=== PATIENT | female | born 1955 | race Caucasian/White ===

== ENCOUNTER 2017-07-17 18:23 | Inpatient (IN) | payer BC, OTHER ==
[~2017-07-17] VITALS: Ht 167.6 cm; Wt 67.6 kg
[~2017-07-17 18:23] MED LIST: ALPR1TAB2 PO; ASPI-630 PO; HYDR-2762 PO; SERT100T PO
[2017-07-17] MEDS ORDERED: NITROGLYCERIN SUBLINGUAL 0.4 MG BOTTLE OF 25. SL PRN (19:30)
[2017-07-17] MEDS ORDERED: fentaNYL PF VIAL 100 MCG/2 ML VIAL IV PRN (19:30)
[2017-07-17 19:33] LABS: BASO # 0.1 x10^3/uL (0.0-0.2); BASO % 1 % (0-3); EOS % 1 % (0-3); HEMATOCRIT 42.9 % (36.0-47.0); HEMOGLOBIN 14.6 g/dL (12.0-15.5); LYMPH # 1.5 x10^3/uL (1.0-4.8); LYMPH % 29 % (24-48); MEAN CORPUSCULAR HEMOGLOBIN 31 pg (25-35); MEAN CORPUSCULAR HGB CONC 34 g/dL (31-37); MEAN CORPUSCULAR VOLUME 92 fL (79-100); MONO % 5 % (0-9); NEUT % 64 % (31-73); PLATELET COUNT 196 x10^3/uL (140-400); RED BLOOD COUNT 4.69 x10^6/uL (3.50-5.40); RED CELL DISTRIBUTION WIDTH 13.7 % (11.5-14.5); WHITE BLOOD COUNT 5.3 x10^3/uL (4.0-11.0)
[2017-07-17 19:47] LABS: CREATININE 0.7 mg/dL (0.6-1.0); GFR 85.6; POTASSIUM 3.9 mmol/L (3.5-5.1)
[2017-07-17 19:48] LABS: BILIRUBIN,URINE NEGATIVE (NEG); GLUCOSE,URINE NEGATIVE (NEG); NITRITE,URINE NEGATIVE (NEG); PROTEIN,URINE NEGATIVE (NEG-TRACE)
[2017-07-17 19:53] LABS: BACTERIA,URINE 0 /HPF (0-FEW); SQUAMOUS EPITHELIAL CELL,UR MOD /LPF; WBC,URINE OCC /HPF (0-4)
[2017-07-17 19:53] LABS: ALBUMIN 4.2 g/dL (3.4-5.0); ALBUMIN/GLOBULIN RATIO 1.4 (1.0-1.7); MAGNESIUM 1.9 mg/dL (1.8-2.4); TOTAL BILIRUBIN 0.5 mg/dL (0.2-1.0); TOTAL PROTEIN 7.3 g/dL (6.4-8.2)
[2017-07-17] MEDS ORDERED: IV NORMAL SALINE 1000ML BAG 1,000 ML IV SCH (20:00)
[2017-07-17 20:02] LABS: CKMB MASS < 0.5 ng/mL (0.0-3.6); CREATINE KINASE 86 U/L (26-192)
--- NOTE | 2017-07-17 20:13 | PHYS DOC ---
Past Medical History Past Medical History: Anxiety, Fibromyalgia, Seizure, Other Additional Past Medical Histor: lupus, cyst/tumor on brain, DDD Past Surgical History: Cancer Surgery, Hysterectomy Alcohol Use: None Drug Use: Marijuana Adult General Chief Complaint Chief Complaint: CHEST PAIN HPI HPI Patient is a 61 year old female who presents with complaint of chest pain. Patient states that she woke up with chest pain this morning. Patient states that it has been coming and going over the course of the day, however became constant over the past 2-3 hours. Patient states that she took 2 full strength aspirin at onset of symptoms but states that this did not help. The patient denies any history of known heart problems and has not had any recent stress testing. 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 Patient states that the pain in her chest as dull currently as 3 out of 10. Patient states that it was worse earlier when she called the ambulance. The patient also notes a prior to their arrival she had a "pseudoseizure" and states that she is having diffuse generalized extremity soreness. 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 Patient does have associated shortness of breath with her chest pain but denies nausea or diaphoresis. Review of Systems Review of Systems Constitutional: Denies fever or chills [] Eyes: Denies change in visual acuity, redness, or eye pain [] HENT: Denies nasal congestion or sore throat [] Respiratory: Shortness of breath[] Cardiovascular: Chest pain[] GI: Denies abdominal pain, nausea, vomiting, bloody stools or diarrhea [] : Denies dysuria or hematuria [] Musculoskeletal: Denies back pain or joint pain [] Integument: Denies rash or skin lesions [] Neurologic: Denies headache, focal weakness or sensory changes [] Endocrine: Denies polyuria or polydipsia [] All other systems were reviewed and found to be within normal limits, except as documented in this note. Current Medications Current Medications Current Medications Medications (Trade) Dose Ordered Sig/Donnell Start Time Stop Time Status Last Admin Dose Admin Fentanyl Citrate (Fentanyl 2ml Vial) 50 mcg PRN Q15MIN PRN 07/17/17 19:30 07/18/17 19:29 Nitroglycerin (Nitrostat) 0.4 mg PRN Q5MIN PRN 07/17/17 19:30 07/18/17 19:29 Sodium Chloride 1,000 ml @ 125 mls/hr Q8H 07/17/17 20:00 07/18/17 03:59 07/17/17 20:03 125 MLS/HR Allergies Allergies Allergies Coded Allergies Type Severity Reaction Last Updated Verified Iodinated Contrast- Oral and IV Dye Allergy Unknown Rash 09/07/14 No metoclopramide Allergy Unknown Unknown 09/07/14 No codeine Adverse Reaction Intermediate Unknown 09/07/14 No Physical Exam Physical Exam Constitutional: Alert, afebrile, appears in moderate discomfort. [] HENT: Normocephalic, atraumatic, bilateral external ears normal, oropharynx moist, no oral exudates, nose normal. [] Eyes: PERRLA, EOMI, conjunctiva normal, no discharge. [] Neck: Normal range of motion, no tenderness, supple, no stridor. [] Cardiovascular:Heart rate regular rhythm, no murmur [] Lungs & Thorax: Bilateral breath sounds clear to auscultation [] Abdomen: Bowel sounds normal, soft, no tenderness, no masses, no pulsatile masses. [] Skin: Warm, dry, no erythema, no rash. [] Back: No tenderness, no CVA tenderness. [] Extremities: No tenderness, no cyanosis, no clubbing, ROM intact, no edema. [] Neurologic: Alert and oriented X 3, normal motor function, normal sensory function, no focal deficits noted. [] Current Patient Data Vital Signs Vital Signs Date Time Temp Pulse Resp B/P (MAP) Pulse Ox O2 Delivery O2 Flow Rate FiO2 07/17/17 18:25 98.2 84 22 157/82 (107) 95 Room Air 98.2 Lab Values Laboratory Tests Test 07/17/17 18:50 07/17/17 19:35 White Blood Count 5.3 x10^3/uL (4.0-11.0) Red Blood Count 4.69 x10^6/uL (3.50-5.40) Hemoglobin 14.6 g/dL (12.0-15.5) Hematocrit 42.9 % (36.0-47.0) Mean Corpuscular Volume 92 fL (79-100) Mean Corpuscular Hemoglobin 31 pg (25-35) Mean Corpuscular Hemoglobin Concent 34 g/dL (31-37) Red Cell Distribution Width 13.7 % (11.5-14.5) Platelet Count 196 x10^3/uL (140-400) Neutrophils (%) (Auto) 64 % (31-73) Lymphocytes (%) (Auto) 29 % (24-48) Monocytes (%) (Auto) 5 % (0-9) Eosinophils (%) (Auto) 1 % (0-3) Basophils (%) (Auto) 1 % (0-3) Neutrophils # (Auto) 3.4 x10^3uL (1.8-7.7) Lymphocytes # (Auto) 1.5 x10^3/uL (1.0-4.8) Monocytes # (Auto) 0.2 x10^3/uL (0.0-1.1) Eosinophils # (Auto) 0.1 x10^3/uL (0.0-0.7) Basophils # (Auto) 0.1 x10^3/uL (0.0-0.2) Sodium Level 141 mmol/L (136-145) Potassium Level 3.9 mmol/L (3.5-5.1) Chloride Level 103 mmol/L (98-107) Carbon Dioxide Level 29 mmol/L (21-32) Anion Gap 9 (6-14) Blood Urea Nitrogen 7 mg/dL (7-20) Creatinine 0.7 mg/dL (0.6-1.0) Estimated GFR (Cockcroft-Gault) 85.6 BUN/Creatinine Ratio 10 (6-20) Glucose Level 100 mg/dL (70-99) H Calcium Level 9.0 mg/dL (8.5-10.1) Magnesium Level 1.9 mg/dL (1.8-2.4) Total Bilirubin 0.5 mg/dL (0.2-1.0) Aspartate Amino Transferase (AST) 14 U/L (15-37) L Alanine Aminotransferase (ALT) 14 U/L (14-59) Alkaline Phosphatase 74 U/L (46-116) Creatine Kinase 86 U/L (26-192) Creatine Kinase MB (Mass) < 0.5 ng/mL (0.0-3.6) Creatine Kinase MB Relative Index % (0-4) Troponin I Quantitative < 0.017 ng/mL (0.000-0.055) DQ-Dmh-B-Type Natriuretic Peptide 62 pg/mL (0-124) Total Protein 7.3 g/dL (6.4-8.2) Albumin 4.2 g/dL (3.4-5.0) Albumin/Globulin Ratio 1.4 (1.0-1.7) Urine Collection Type Unknown Urine Color Yellow Urine Clarity Clear Urine pH 7.0 Urine Specific [place] 1.015 Urine Protein Negative mg/dL (NEG-TRACE) Urine Glucose (UA) Negative mg/dL (NEG) Urine Ketones (Stick) Negative mg/dL (NEG) Urine Blood Negative (NEG) Urine Nitrite Negative (NEG) Urine Bilirubin Negative (NEG) Urine Urobilinogen Dipstick 2.0 mg/dL (0.2 mg/dL) Urine Leukocyte Esterase Negative (NEG) Urine RBC 3-5 /HPF (0-2) Urine WBC Occ /HPF (0-4) Urine Squamous Epithelial Cells Mod /LPF Urine Bacteria 0 /HPF (0-FEW) Urine Mucus Slight /LPF Laboratory Tests 07/17/17 18:50 Laboratory Tests 07/17/17 18:50 EKG EKG Interpreted by me: Heart rate 78, sinus rhythm, leftward axis, no acute ST/T wave abnormality present[] Radiology/Procedures Radiology/Procedures One view AP chest x-ray interpreted by me: No infiltrates, no effusions, normal cardiac silhouette[] Course & Med Decision Making Course & Med Decision Making Pertinent Labs and Imaging studies reviewed. (See chart for details) The patient's heart score is 4. Patient treated with nitroglycerin and fentanyl in the emergency department. Patient states improvement in symptoms however she does have persistent chest pain at this time. Patient will be admitted to the hospital for rule out of myocardial infarction. I spoke with Dr. Pearson who accepted care patient in hospital. Dragon Disclaimer Dragon Disclaimer This electronic medical record was generated, in whole or in part, using a voice recognition dictation system. Departure Departure Impression: Primary Impression: Chest pain Disposition: ADMITTED INPATIENT Admitting Physician: Other Condition: STABLE Referrals: BASHIR VARELA MD (PCP) Problem Qualifiers Primary Impression: Chest pain Chest pain type: unspecified Qualified Codes: R07.9 - Chest pain, unspecified VENESSA MAGDALENO MD Jul 17, 2017 20:13
[2017-07-17] MEDS ORDERED: ONDANSETRON PF 4 MG/2 ML VIAL. IV PRN (20:15)
[2017-07-17] MEDS ORDERED: ACETAMINOPHEN 325 MG TABLET. PO PRN (20:15)
[2017-07-17] MEDS: fentaNYL PF VIAL 100 MCG/2 ML VIAL IV PRN (22:07)
[2017-07-17] MEDS ORDERED: OXTELLAR PO (22:27)
[2017-07-17 23:00] VITALS: BP 147/83
[2017-07-18] MEDS: fentaNYL PF VIAL 100 MCG/2 ML VIAL IV PRN (00:28)
[2017-07-18] MEDS ORDERED: ALPRAZolam 1 MG TABLET PO ONE (00:45)
[2017-07-18] MEDS ORDERED: SERTRALINE 50 MG TABLET. PO ONE (00:45)
[2017-07-18] MEDS ORDERED: HYDROcodone/APAP 7.5/325MG 1 TAB TABLET PO PRN ×2 (00:45→18:15)
--- NOTE | 2017-07-18 01:16 | HP ---
ADMIT DATE: 07/17/2017 CHIEF COMPLAINT: Arm pain, chest pain. HISTORY OF PRESENT ILLNESS: The patient is a 61-year-old woman with past medical history of anxiety, fibromyalgia, seizure disorder among others, who presented to the Emergency Room with a 3-day history of left arm pain. She relates that from her shoulder joint down to about mid forearm, she has had pain that is waxing and waning and actually has made it difficult for her to sleep on her left side. On further questioning, she also relates that she had chest pressure, which has been going on waxing and waning over the past 3 days, worse since awakening this morning. She took some aspirin, which actually did not help the pain. She also endorses some shortness of breath and nausea with all symptoms ongoing. She denies any diaphoresis with the episodes, but does have frequent sweats, especially at night and upon waking early in the morning. She denies any heart history. PAST MEDICAL HISTORY: Seizure disorder, cyst in the brain in third ventricle (?), fibromyalgia, lupus, breast surgery, status post mastectomy, status post hysterectomy. FAMILY HISTORY: No heart disease, hypertension or other diseases known to her. SOCIAL HISTORY: Lives with her . Smokes about a half a pack a day, down from 1 to 2 packs previously. Also smokes marijuana. Denies any alcohol use. ALLERGIES: IODINATED CONTRAST, CODEINE, METOCLOPRAMIDE. MEDICATIONS: MAR reconciled with home medications. REVIEW OF SYSTEMS: Positive as per HPI. She also has chronic back pain and fibromyalgia with trigger points. Has noted a skin rash on the medial aspect of her distal thigh just above the knee that seems to be coming and going over the months, itchy, nonpainful. Rest of organ system review is negative. PHYSICAL EXAMINATION: VITAL SIGNS: From today show a blood pressure of 127/77, heart rate of 70, respiratory rate at 22. She is afebrile. GENERAL: This is a well-nourished 61-year-old woman, alert and oriented, in no acute distress. HEENT: Shows no scleral icterus. NECK: Supple. LUNGS: Clear. HEART: Has regular rate and rhythm. ABDOMEN: Positive bowel sounds, soft, moderate tenderness to palpation in the epigastric area. EXTREMITIES: Show no edema. SKIN: Warm, soft and dry. She has a circular erythematous lesion, dry and rough on the medial aspect of her left thigh. LABORATORY DATA: CBC with a WBC of 5.3, hemoglobin 14.6, platelets of 196. BUN and creatinine 7 and 0.7, normal electrolytes, normal LFTs. Troponins negative x 2. Urine is negative. ASSESSMENT AND PLAN: The patient is a 61-year-old woman who presents with various symptoms, in aggregate possibly angina. She has ruled out by labs already. We will obtain cardiac consult. Further studies as per Cardiology. Lipid profile and TSH are already pending. Discussed smoking cessation with her. She is slowly weaning herself off, but has significant stressors in her family life currently. We will continue all her other home medications. LUCIA MCGINNIS MD DR: UR/nts JOB#: [id number] / [id number] SCOTTY
[2017-07-18 02:31] LABS: BASO # 0.1 x10^3/uL (0.0-0.2); BASO % 1 % (0-3); EOS % 4 % (0-3); HEMATOCRIT 38.9 % (36.0-47.0); HEMOGLOBIN 13.3 g/dL (12.0-15.5); LYMPH # 2.2 x10^3/uL (1.0-4.8); LYMPH % 43 % (24-48); MEAN CORPUSCULAR HEMOGLOBIN 31 pg (25-35); MEAN CORPUSCULAR HGB CONC 34 g/dL (31-37); MEAN CORPUSCULAR VOLUME 92 fL (79-100); MONO % 6 % (0-9); NEUT % 46 % (31-73); PLATELET COUNT 185 x10^3/uL (140-400); RED BLOOD COUNT 4.24 x10^6/uL (3.50-5.40); RED CELL DISTRIBUTION WIDTH 13.7 % (11.5-14.5); WHITE BLOOD COUNT 5.1 x10^3/uL (4.0-11.0)
[2017-07-18 02:41] LABS: CALCIUM 8.7 mg/dL (8.5-10.1); CREATININE 0.7 mg/dL (0.6-1.0); GFR 85.6; POTASSIUM 3.4 mmol/L (3.5-5.1)
[2017-07-18 03:00] VITALS: BP 125/71
[2017-07-18] MEDS ORDERED: IV NORMAL SALINE 1000ML BAG 1,000 ML IV SCH (04:00)
--- NOTE | 2017-07-18 06:59 | EKG ---
[facility] [address] [place] [address] Test Date: 2017-07-17 Test Time: 18:28:06 Pat Name: JAMARI GREEN Department: Room: Gender: F Team Physician: : [id number] Requested By: VENESSA MAGDALENO Order Number: [id number] Reading MD: Measurements Intervals [place] Rate: 78 P: 48 CT: 152 QRS: -23 QRSD: 78 T: 38 QT: 390 QTc: 448 Interpretive Statements SINUS RHYTHM LEFTWARD AXIS QRS(T) CONTOUR ABNORMALITY CONSIDER ANTEROLATERAL MYOCARDIAL DAMAGE POSSIBLY ABNORMAL ECG RI6.01 No previous ECG available for comparison
[2017-07-18 07:00] VITALS: BP 133/77
[2017-07-18 07:18] LABS: CHOLESTEROL/HDL RATIO 7.8
--- NOTE | 2017-07-18 07:47 | RAD ---
Portable chest, 07/17/2017: History: Left arm numbness The heart size and pulmonary vascularity are normal. Linear opacities project over the lung bases are probably artifacts. There are also minimal scattered parenchymal scars. No pulmonary consolidation is seen. There is no evidence of pleural fluid. There is a mild thoracic scoliosis. IMPRESSION: No acute cardiopulmonary abnormality is detected.
[2017-07-18] MEDS: NICOTINE 14MG PATCH. TD SCH (08:43)
[2017-07-18] MEDS: ALPRAZolam 1 MG TABLET PO SCH ×3 (08:43→20:30)
--- NOTE | 2017-07-18 10:37 | PDOC2 ---
ERI MEDLEY FRANCHISE BROKER 07/18/17 1037: CARDIAC CONSULT DATE OF CONSULT Date of Consult DATE: 07/18/17 TIME: 10:33 REASON FOR CONSULT Reason for Consult: Chest pain REFERRING PHYSICIAN Referring Physician: Dr. Gaitan SOURCE Source: Chart review, Patient HISTORY OF PRESENT ILLNESS HISTORY OF PRESENT ILLNESS This is a 61 yo female who presented with complaints of chest pain. Patient reports pain has been intermittent for the last year. No precipitating or exacerbating factors. Most recently, patient reports experiencing pain in her central chest throughout the day yesterday that progressively worsened. Describes as pressure in nature. Radiated to her left shoulder and down her left arm. Associated with mild SOA. Denies any dizziness, diaphoresis, palpitations, or nausea/vomiting. Does report having "pseudoseizure" yesterday that seemed to worsen the pain. Reports feeling overly fatigued for the last year. No recent cardiac workup. Was previously on statin, although she discontinued due to myalgias. Is somewhat of a difficult historian. PAST MEDICAL HISTORY Cardiovascular: Hyperlipidemia, Other (palpitations) Pulmonary: Asthma CENTRAL NERVOUS SYSTEM: Seizure GI: GERD Heme/Onc: No pertinent hx Hepatobiliary: No pertinent hx Psych: Anxiety, Depression, Other (PTSD) Musculoskeletal: low back pain (DDD) Rheumatologic: No pertinent hx Infectious disease: No pertinent hx ENT: No pertinent hx Renal/: Chronic renal insuff Endocrine: No pertinent hx Dermatology: No pertinent hx PAST SURGICAL HISTORY Past Surgical History: Hysterectomy, Other (nephrectomy ) FAMILY HISTORY Family History: Heart Disease, Hypertension SOCIAL HISTORY Smoke: 1 pack per day ALCOHOL: none Drugs: None, Other (clean for 15 years ) Lives: with Family CURRENT MEDICATIONS CURRENT MEDICATIONS Current Medications Medications (Trade) Dose Ordered Sig/Donnell Route PRN Reason Start Time Stop Time Status Last Admin Dose Admin Sodium Chloride 1,000 ml @ 125 mls/hr Q8H IV 07/17/17 20:00 07/18/17 03:59 DC 07/17/17 20:03 Fentanyl Citrate (Fentanyl 2ml Vial) 50 mcg PRN Q2HR PRN IV PAIN 07/17/17 20:15 07/18/17 20:14 07/18/17 00:28 Sodium Chloride 1,000 ml @ 125 mls/hr Q8H IV 07/18/17 04:00 07/18/17 04:01 DC 07/18/17 03:44 Acetaminophen (Tylenol) 650 mg PRN Q4HRS PRN PO FEVER 07/17/17 20:15 07/18/17 20:14 07/17/17 22:06 Alprazolam (Xanax) 1 mg TID PO 07/18/17 09:00 07/18/17 08:43 Acetaminophen/ Hydrocodone Bitart (Lortab 7.5/325) 1 tab for pain 5-7 2 tabs ... PRN Q4HRS PRN PO pain 07/18/17 00:45 07/18/17 03:43 Nicotine (Nicoderm Cq 14mg) 1 patch DAILY TD 07/18/17 09:00 07/18/17 08:43 Alprazolam (Xanax) 1 mg 1X ONCE PO 07/18/17 00:45 07/18/17 00:46 DC 07/18/17 00:50 Sertraline HCl (Zoloft) 150 mg 1X ONCE PO 07/18/17 00:45 07/18/17 00:46 DC 07/18/17 00:50 ALLERGIES ALLERGIES: Coded Allergies: Iodinated Contrast- Oral and IV Dye (Verified Allergy, Unknown, Rash, ) metoclopramide (Verified Allergy, Unknown, Unknown, 07/18/17) causes body to contort codeine (Verified Adverse Reaction, Intermediate, Unknown, 07/18/17) "migraine" ROS Review of System 14 point ROS conducted with pertinent positives noted above in HPI. PHYSICAL EXAM General: Alert, Oriented X3, Cooperative, No acute distress HEENT: Atraumatic, Mucous membr. moist/pink Lungs: Clear to auscultation Heart: Regular rate, Normal S1, Normal S2 Abdomen: Soft, No tenderness Extremities: No edema, Normal pulses Skin: No significant lesion Neuro: Normal speech, Sensation intact Psych/Mental Status: Mental status NL, Other (flat affect ) MUSCULOSKELETAL: Osteoarthritic changes both hands VITALS VITALS Vital Signs Date Time Temp Pulse Resp B/P (MAP) Pulse Ox O2 Delivery O2 Flow Rate FiO2 07/18/17 08:00 Room Air 07/18/17 07:00 97.8 60 18 133/77 (95) 96 97.8 LABS Lab: Laboratory Tests Test 07/17/17 18:50 07/17/17 19:35 07/17/17 22:30 07/18/17 02:20 White Blood Count 5.3 x10^3/uL (4.0-11.0) 5.1 x10^3/uL (4.0-11.0) Red Blood Count 4.69 x10^6/uL (3.50-5.40) 4.24 x10^6/uL (3.50-5.40) Hemoglobin 14.6 g/dL (12.0-15.5) 13.3 g/dL (12.0-15.5) Hematocrit 42.9 % (36.0-47.0) 38.9 % (36.0-47.0) Mean Corpuscular Volume 92 fL (79-100) 92 fL (79-100) Mean Corpuscular Hemoglobin 31 pg (25-35) 31 pg (25-35) Mean Corpuscular Hemoglobin Concent 34 g/dL (31-37) 34 g/dL (31-37) Red Cell Distribution Width 13.7 % (11.5-14.5) 13.7 % (11.5-14.5) Platelet Count 196 x10^3/uL (140-400) 185 x10^3/uL (140-400) Neutrophils (%) (Auto) 64 % (31-73) 46 % (31-73) Lymphocytes (%) (Auto) 29 % (24-48) 43 % (24-48) Monocytes (%) (Auto) 5 % (0-9) 6 % (0-9) Eosinophils (%) (Auto) 1 % (0-3) 4 % (0-3) Basophils (%) (Auto) 1 % (0-3) 1 % (0-3) Neutrophils # (Auto) 3.4 x10^3uL (1.8-7.7) 2.4 x10^3uL (1.8-7.7) Lymphocytes # (Auto) 1.5 x10^3/uL (1.0-4.8) 2.2 x10^3/uL (1.0-4.8) Monocytes # (Auto) 0.2 x10^3/uL (0.0-1.1) 0.3 x10^3/uL (0.0-1.1) Eosinophils # (Auto) 0.1 x10^3/uL (0.0-0.7) 0.2 x10^3/uL (0.0-0.7) Basophils # (Auto) 0.1 x10^3/uL (0.0-0.2) 0.1 x10^3/uL (0.0-0.2) Sodium Level 141 mmol/L (136-145) 142 mmol/L (136-145) Potassium Level 3.9 mmol/L (3.5-5.1) 3.4 mmol/L (3.5-5.1) Chloride Level 103 mmol/L (98-107) 109 mmol/L (98-107) Carbon Dioxide Level 29 mmol/L (21-32) 27 mmol/L (21-32) Anion Gap 9 (6-14) 6 (6-14) Blood Urea Nitrogen 7 mg/dL (7-20) 13 mg/dL (7-20) Creatinine 0.7 mg/dL (0.6-1.0) 0.7 mg/dL (0.6-1.0) Estimated GFR (Cockcroft-Gault) 85.6 85.6 BUN/Creatinine Ratio 10 (6-20) Glucose Level 100 mg/dL (70-99) 108 mg/dL (70-99) Calcium Level 9.0 mg/dL (8.5-10.1) 8.7 mg/dL (8.5-10.1) Magnesium Level 1.9 mg/dL (1.8-2.4) Total Bilirubin 0.5 mg/dL (0.2-1.0) Aspartate Amino Transf (AST/SGOT) 14 U/L (15-37) Alanine Aminotransferase (ALT/SGPT) 14 U/L (14-59) Alkaline Phosphatase 74 U/L (46-116) Creatine Kinase 86 U/L (26-192) Creatine Kinase MB (Mass) < 0.5 ng/mL (0.0-3.6) Creatine Kinase MB Relative Index % (0-4) Troponin I Quantitative < 0.017 ng/mL (0.000-0.055) < 0.017 ng/mL (0.000-0.055) < 0.017 ng/mL (0.000-0.055) DU-Jax-Z-Type Natriuretic Peptide 62 pg/mL (0-124) Total Protein 7.3 g/dL (6.4-8.2) Albumin 4.2 g/dL (3.4-5.0) Albumin/Globulin Ratio 1.4 (1.0-1.7) Urine Collection Type Unknown Urine Color Yellow Urine Clarity Clear Urine pH 7.0 Urine Specific [place] 1.015 Urine Protein Negative mg/dL (NEG-TRACE) Urine Glucose (UA) Negative mg/dL (NEG) Urine Ketones (Stick) Negative mg/dL (NEG) Urine Blood Negative (NEG) Urine Nitrite Negative (NEG) Urine Bilirubin Negative (NEG) Urine Urobilinogen Dipstick 2.0 mg/dL (0.2 mg/dL) Urine Leukocyte Esterase Negative (NEG) Urine RBC 3-5 /HPF (0-2) Urine WBC Occ /HPF (0-4) Urine Squamous Epithelial Cells Mod /LPF Urine Bacteria 0 /HPF (0-FEW) Urine Mucus Slight /LPF Triglycerides Level 91 mg/dL (0-150) Cholesterol Level 210 mg/dL (0-200) LDL Cholesterol, Calculated 165 mg/dL (0-100) VLDL Cholesterol, Calculated 18 mg/dL (0-40) Non-HDL Cholesterol Calculated 183 mg/dL (0-129) HDL Cholesterol 27 mg/dL (40-60) Cholesterol/HDL Ratio 7.8 Thyroid Stimulating Hormone (TSH) 1.605 uIU/mL (0.358-3.74) ASSESSMENT/PLAN ASSESSMENT/PLAN 1. Chest pain, atypical. AMI ruled out 2. Hyperlipidemia 3. Seizure disorder 4. GERD 5. Chronic pain 6. Fatigue 7. Tobaccoism; discussed/encouraged cessation Recommendations Given risk factors, will proceed with stress test to r/o ischemia Trial Crestor upon discharge as she has been intolerant to statins previously Problems: CHAUNCEY SYKES MD 07/18/17 1710: CARDIAC CONSULT ALLERGIES ALLERGIES: Coded Allergies: Iodinated Contrast- Oral and IV Dye (Verified Allergy, Unknown, Rash, ) metoclopramide (Verified Allergy, Unknown, Unknown, 07/18/17) causes body to contort codeine (Verified Adverse Reaction, Intermediate, Unknown, 07/18/17) "migraine" ASSESSMENT/PLAN ASSESSMENT/PLAN Patient seen and examined. Agree with above nurse practitioner note. Myocardial perfusion study unremarkable. Please call with further questions. Thank you for this consultation. Problems: ERI MEDLEY APRN Jul 18, 2017 10:37 CHAUNCEY SYKES MD Jul 18, 2017 17:10
[2017-07-18 11:00] VITALS: BP 114/76
[2017-07-18] MEDS ORDERED: REGADENOSON 0.4 MG/5 ML DISP.SYRIN. IV ONE (12:00)
[2017-07-18] MEDS ORDERED: POTASSIUM CL 20MEQ D5-0.45NACL 1,000 ML IV ONE (12:30)
--- NOTE | 2017-07-18 12:32 | PDOC ---
PROGRESS NOTES Chief Complaint Chief Complaint angina. pseudoseizure, anxiety disorder substance abuse prior seizure htn hyperlipids PTSD History of Present Illness History of Present Illness stress test today seizure in wheelchair while waiting, pseudoseizure fits better, she was able to talk during the event, but had tonic-clinic movements rhythmic and rapids movements of arms and legs, Vitals Vitals Vital Signs Date Time Temp Pulse Resp B/P (MAP) Pulse Ox O2 Delivery O2 Flow Rate FiO2 07/18/17 11:00 97.8 61 18 114/76 (89) 95 Room Air 97.8 Physical Exam General: Alert, Cooperative, No acute distress Heart: Normal S1 Abdomen: Normal bowel sounds Extremities: No cyanosis Skin: No rashes Labs LABS Laboratory Tests Test 07/17/17 18:50 07/17/17 19:35 07/17/17 22:30 07/18/17 02:20 White Blood Count 5.3 x10^3/uL (4.0-11.0) 5.1 x10^3/uL (4.0-11.0) Red Blood Count 4.69 x10^6/uL (3.50-5.40) 4.24 x10^6/uL (3.50-5.40) Hemoglobin 14.6 g/dL (12.0-15.5) 13.3 g/dL (12.0-15.5) Hematocrit 42.9 % (36.0-47.0) 38.9 % (36.0-47.0) Mean Corpuscular Volume 92 fL (79-100) 92 fL (79-100) Mean Corpuscular Hemoglobin 31 pg (25-35) 31 pg (25-35) Mean Corpuscular Hemoglobin Concent 34 g/dL (31-37) 34 g/dL (31-37) Red Cell Distribution Width 13.7 % (11.5-14.5) 13.7 % (11.5-14.5) Platelet Count 196 x10^3/uL (140-400) 185 x10^3/uL (140-400) Neutrophils (%) (Auto) 64 % (31-73) 46 % (31-73) Lymphocytes (%) (Auto) 29 % (24-48) 43 % (24-48) Monocytes (%) (Auto) 5 % (0-9) 6 % (0-9) Eosinophils (%) (Auto) 1 % (0-3) 4 % (0-3) Basophils (%) (Auto) 1 % (0-3) 1 % (0-3) Neutrophils # (Auto) 3.4 x10^3uL (1.8-7.7) 2.4 x10^3uL (1.8-7.7) Lymphocytes # (Auto) 1.5 x10^3/uL (1.0-4.8) 2.2 x10^3/uL (1.0-4.8) Monocytes # (Auto) 0.2 x10^3/uL (0.0-1.1) 0.3 x10^3/uL (0.0-1.1) Eosinophils # (Auto) 0.1 x10^3/uL (0.0-0.7) 0.2 x10^3/uL (0.0-0.7) Basophils # (Auto) 0.1 x10^3/uL (0.0-0.2) 0.1 x10^3/uL (0.0-0.2) Sodium Level 141 mmol/L (136-145) 142 mmol/L (136-145) Potassium Level 3.9 mmol/L (3.5-5.1) 3.4 mmol/L (3.5-5.1) Chloride Level 103 mmol/L (98-107) 109 mmol/L (98-107) Carbon Dioxide Level 29 mmol/L (21-32) 27 mmol/L (21-32) Anion Gap 9 (6-14) 6 (6-14) Blood Urea Nitrogen 7 mg/dL (7-20) 13 mg/dL (7-20) Creatinine 0.7 mg/dL (0.6-1.0) 0.7 mg/dL (0.6-1.0) Estimated GFR (Cockcroft-Gault) 85.6 85.6 BUN/Creatinine Ratio 10 (6-20) Glucose Level 100 mg/dL (70-99) 108 mg/dL (70-99) Calcium Level 9.0 mg/dL (8.5-10.1) 8.7 mg/dL (8.5-10.1) Magnesium Level 1.9 mg/dL (1.8-2.4) Total Bilirubin 0.5 mg/dL (0.2-1.0) Aspartate Amino Transf (AST/SGOT) 14 U/L (15-37) Alanine Aminotransferase (ALT/SGPT) 14 U/L (14-59) Alkaline Phosphatase 74 U/L (46-116) Creatine Kinase 86 U/L (26-192) Creatine Kinase MB (Mass) < 0.5 ng/mL (0.0-3.6) Creatine Kinase MB Relative Index % (0-4) Troponin I Quantitative < 0.017 ng/mL (0.000-0.055) < 0.017 ng/mL (0.000-0.055) < 0.017 ng/mL (0.000-0.055) VM-Vwo-Q-Type Natriuretic Peptide 62 pg/mL (0-124) Total Protein 7.3 g/dL (6.4-8.2) Albumin 4.2 g/dL (3.4-5.0) Albumin/Globulin Ratio 1.4 (1.0-1.7) Urine Collection Type Unknown Urine Color Yellow Urine Clarity Clear Urine pH 7.0 Urine Specific [place]we 1.015 Urine Protein Negative mg/dL (NEG-TRACE) Urine Glucose (UA) Negative mg/dL (NEG) Urine Ketones (Stick) Negative mg/dL (NEG) Urine Blood Negative (NEG) Urine Nitrite Negative (NEG) Urine Bilirubin Negative (NEG) Urine Urobilinogen Dipstick 2.0 mg/dL (0.2 mg/dL) Urine Leukocyte Esterase Negative (NEG) Urine RBC 3-5 /HPF (0-2) Urine WBC Occ /HPF (0-4) Urine Squamous Epithelial Cells Mod /LPF Urine Bacteria 0 /HPF (0-FEW) Urine Mucus Slight /LPF Triglycerides Level 91 mg/dL (0-150) Cholesterol Level 210 mg/dL (0-200) LDL Cholesterol, Calculated 165 mg/dL (0-100) VLDL Cholesterol, Calculated 18 mg/dL (0-40) Non-HDL Cholesterol Calculated 183 mg/dL (0-129) HDL Cholesterol 27 mg/dL (40-60) Cholesterol/HDL Ratio 7.8 Thyroid Stimulating Hormone (TSH) 1.605 uIU/mL (0.358-3.74) Review of Systems Review of Systems non.vd. chest pain was improved stress and seizure Assessment and Plan Assessmemt and Plan Problems Medical Problems: (1) Chest pain Status: Acute Problems: Comment Review of Relevant I have reviewed the following items claribel (where applicable) has been applied. Labs Laboratory Tests Test 07/17/17 18:50 07/17/17 19:35 07/17/17 22:30 07/18/17 02:20 White Blood Count 5.3 x10^3/uL (4.0-11.0) 5.1 x10^3/uL (4.0-11.0) Red Blood Count 4.69 x10^6/uL (3.50-5.40) 4.24 x10^6/uL (3.50-5.40) Hemoglobin 14.6 g/dL (12.0-15.5) 13.3 g/dL (12.0-15.5) Hematocrit 42.9 % (36.0-47.0) 38.9 % (36.0-47.0) Mean Corpuscular Volume 92 fL (79-100) 92 fL (79-100) Mean Corpuscular Hemoglobin 31 pg (25-35) 31 pg (25-35) Mean Corpuscular Hemoglobin Concent 34 g/dL (31-37) 34 g/dL (31-37) Red Cell Distribution Width 13.7 % (11.5-14.5) 13.7 % (11.5-14.5) Platelet Count 196 x10^3/uL (140-400) 185 x10^3/uL (140-400) Neutrophils (%) (Auto) 64 % (31-73) 46 % (31-73) Lymphocytes (%) (Auto) 29 % (24-48) 43 % (24-48) Monocytes (%) (Auto) 5 % (0-9) 6 % (0-9) Eosinophils (%) (Auto) 1 % (0-3) 4 % (0-3) Basophils (%) (Auto) 1 % (0-3) 1 % (0-3) Neutrophils # (Auto) 3.4 x10^3uL (1.8-7.7) 2.4 x10^3uL (1.8-7.7) Lymphocytes # (Auto) 1.5 x10^3/uL (1.0-4.8) 2.2 x10^3/uL (1.0-4.8) Monocytes # (Auto) 0.2 x10^3/uL (0.0-1.1) 0.3 x10^3/uL (0.0-1.1) Eosinophils # (Auto) 0.1 x10^3/uL (0.0-0.7) 0.2 x10^3/uL (0.0-0.7) Basophils # (Auto) 0.1 x10^3/uL (0.0-0.2) 0.1 x10^3/uL (0.0-0.2) Sodium Level 141 mmol/L (136-145) 142 mmol/L (136-145) Potassium Level 3.9 mmol/L (3.5-5.1) 3.4 mmol/L (3.5-5.1) Chloride Level 103 mmol/L (98-107) 109 mmol/L (98-107) Carbon Dioxide Level 29 mmol/L (21-32) 27 mmol/L (21-32) Anion Gap 9 (6-14) 6 (6-14) Blood Urea Nitrogen 7 mg/dL (7-20) 13 mg/dL (7-20) Creatinine 0.7 mg/dL (0.6-1.0) 0.7 mg/dL (0.6-1.0) Estimated GFR (Cockcroft-Gault) 85.6 85.6 BUN/Creatinine Ratio 10 (6-20) Glucose Level 100 mg/dL (70-99) 108 mg/dL (70-99) Calcium Level 9.0 mg/dL (8.5-10.1) 8.7 mg/dL (8.5-10.1) Magnesium Level 1.9 mg/dL (1.8-2.4) Total Bilirubin 0.5 mg/dL (0.2-1.0) Aspartate Amino Transf (AST/SGOT) 14 U/L (15-37) Alanine Aminotransferase (ALT/SGPT) 14 U/L (14-59) Alkaline Phosphatase 74 U/L (46-116) Creatine Kinase 86 U/L (26-192) Creatine Kinase MB (Mass) < 0.5 ng/mL (0.0-3.6) Creatine Kinase MB Relative Index % (0-4) Troponin I Quantitative < 0.017 ng/mL (0.000-0.055) < 0.017 ng/mL (0.000-0.055) < 0.017 ng/mL (0.000-0.055) RQ-Nvo-K-Type Natriuretic Peptide 62 pg/mL (0-124) Total Protein 7.3 g/dL (6.4-8.2) Albumin 4.2 g/dL (3.4-5.0) Albumin/Globulin Ratio 1.4 (1.0-1.7) Urine Collection Type Unknown Urine Color Yellow Urine Clarity Clear Urine pH 7.0 Urine Specific [place]we 1.015 Urine Protein Negative mg/dL (NEG-TRACE) Urine Glucose (UA) Negative mg/dL (NEG) Urine Ketones (Stick) Negative mg/dL (NEG) Urine Blood Negative (NEG) Urine Nitrite Negative (NEG) Urine Bilirubin Negative (NEG) Urine Urobilinogen Dipstick 2.0 mg/dL (0.2 mg/dL) Urine Leukocyte Esterase Negative (NEG) Urine RBC 3-5 /HPF (0-2) Urine WBC Occ /HPF (0-4) Urine Squamous Epithelial Cells Mod /LPF Urine Bacteria 0 /HPF (0-FEW) Urine Mucus Slight /LPF Triglycerides Level 91 mg/dL (0-150) Cholesterol Level 210 mg/dL (0-200) LDL Cholesterol, Calculated 165 mg/dL (0-100) VLDL Cholesterol, Calculated 18 mg/dL (0-40) Non-HDL Cholesterol Calculated 183 mg/dL (0-129) HDL Cholesterol 27 mg/dL (40-60) Cholesterol/HDL Ratio 7.8 Thyroid Stimulating Hormone (TSH) 1.605 uIU/mL (0.358-3.74) Laboratory Tests Test 07/17/17 18:50 07/17/17 19:35 07/17/17 22:30 07/18/17 02:20 White Blood Count 5.3 x10^3/uL (4.0-11.0) 5.1 x10^3/uL (4.0-11.0) Red Blood Count 4.69 x10^6/uL (3.50-5.40) 4.24 x10^6/uL (3.50-5.40) Hemoglobin 14.6 g/dL (12.0-15.5) 13.3 g/dL (12.0-15.5) Hematocrit 42.9 % (36.0-47.0) 38.9 % (36.0-47.0) Mean Corpuscular Volume 92 fL (79-100) 92 fL (79-100) Mean Corpuscular Hemoglobin 31 pg (25-35) 31 pg (25-35) Mean Corpuscular Hemoglobin Concent 34 g/dL (31-37) 34 g/dL (31-37) Red Cell Distribution Width 13.7 % (11.5-14.5) 13.7 % (11.5-14.5) Platelet Count 196 x10^3/uL (140-400) 185 x10^3/uL (140-400) Neutrophils (%) (Auto) 64 % (31-73) 46 % (31-73) Lymphocytes (%) (Auto) 29 % (24-48) 43 % (24-48) Monocytes (%) (Auto) 5 % (0-9) 6 % (0-9) Eosinophils (%) (Auto) 1 % (0-3) 4 % (0-3) Basophils (%) (Auto) 1 % (0-3) 1 % (0-3) Neutrophils # (Auto) 3.4 x10^3uL (1.8-7.7) 2.4 x10^3uL (1.8-7.7) Lymphocytes # (Auto) 1.5 x10^3/uL (1.0-4.8) 2.2 x10^3/uL (1.0-4.8) Monocytes # (Auto) 0.2 x10^3/uL (0.0-1.1) 0.3 x10^3/uL (0.0-1.1) Eosinophils # (Auto) 0.1 x10^3/uL (0.0-0.7) 0.2 x10^3/uL (0.0-0.7) Basophils # (Auto) 0.1 x10^3/uL (0.0-0.2) 0.1 x10^3/uL (0.0-0.2) Sodium Level 141 mmol/L (136-145) 142 mmol/L (136-145) Potassium Level 3.9 mmol/L (3.5-5.1) 3.4 mmol/L (3.5-5.1) Chloride Level 103 mmol/L (98-107) 109 mmol/L (98-107) Carbon Dioxide Level 29 mmol/L (21-32) 27 mmol/L (21-32) Anion Gap 9 (6-14) 6 (6-14) Blood Urea Nitrogen 7 mg/dL (7-20) 13 mg/dL (7-20) Creatinine 0.7 mg/dL (0.6-1.0) 0.7 mg/dL (0.6-1.0) Estimated GFR (Cockcroft-Gault) 85.6 85.6 BUN/Creatinine Ratio 10 (6-20) Glucose Level 100 mg/dL (70-99) 108 mg/dL (70-99) Calcium Level 9.0 mg/dL (8.5-10.1) 8.7 mg/dL (8.5-10.1) Magnesium Level 1.9 mg/dL (1.8-2.4) Total Bilirubin 0.5 mg/dL (0.2-1.0) Aspartate Amino Transf (AST/SGOT) 14 U/L (15-37) Alanine Aminotransferase (ALT/SGPT) 14 U/L (14-59) Alkaline Phosphatase 74 U/L (46-116) Creatine Kinase 86 U/L (26-192) Creatine Kinase MB (Mass) < 0.5 ng/mL (0.0-3.6) Creatine Kinase MB Relative Index % (0-4) Troponin I Quantitative < 0.017 ng/mL (0.000-0.055) < 0.017 ng/mL (0.000-0.055) < 0.017 ng/mL (0.000-0.055) RM-Abl-G-Type Natriuretic Peptide 62 pg/mL (0-124) Total Protein 7.3 g/dL (6.4-8.2) Albumin 4.2 g/dL (3.4-5.0) Albumin/Globulin Ratio 1.4 (1.0-1.7) Urine Collection Type Unknown Urine Color Yellow Urine Clarity Clear Urine pH 7.0 Urine Specific [place]we 1.015 Urine Protein Negative mg/dL (NEG-TRACE) Urine Glucose (UA) Negative mg/dL (NEG) Urine Ketones (Stick) Negative mg/dL (NEG) Urine Blood Negative (NEG) Urine Nitrite Negative (NEG) Urine Bilirubin Negative (NEG) Urine Urobilinogen Dipstick 2.0 mg/dL (0.2 mg/dL) Urine Leukocyte Esterase Negative (NEG) Urine RBC 3-5 /HPF (0-2) Urine WBC Occ /HPF (0-4) Urine Squamous Epithelial Cells Mod /LPF Urine Bacteria 0 /HPF (0-FEW) Urine Mucus Slight /LPF Triglycerides Level 91 mg/dL (0-150) Cholesterol Level 210 mg/dL (0-200) LDL Cholesterol, Calculated 165 mg/dL (0-100) VLDL Cholesterol, Calculated 18 mg/dL (0-40) Non-HDL Cholesterol Calculated 183 mg/dL (0-129) HDL Cholesterol 27 mg/dL (40-60) Cholesterol/HDL Ratio 7.8 Thyroid Stimulating Hormone (TSH) 1.605 uIU/mL (0.358-3.74) Medications Current Medications Nitroglycerin (Nitrostat) 0.4 mg PRN Q5MIN PRN SL CP RATING > 1/10; Start at 19:30; Stop 07/18/17 at 19:29 Fentanyl Citrate (Fentanyl 2ml Vial) 50 mcg PRN Q15MIN PRN IV PAIN GREATER THAN 3/10; Start 07/17/17 at 19:30; Stop 07/17/17 at 23:00; Status DC Sodium Chloride 1,000 ml @ 125 mls/hr Q8H IV Last administered on 07/17/17 20:03; Start 07/17/17 at 20:00; Stop 07/18/17 at 03:59; Status DC Ondansetron HCl (Zofran) 4 mg PRN Q8HRS PRN IV NAUSEA/VOMITING; Start at 20:15; Stop 07/18/17 at 20:14 Fentanyl Citrate (Fentanyl 2ml Vial) 50 mcg PRN Q2HR PRN IV PAIN Last administered on 07/18/17 00:28; Start 07/17/17 at 20:15; Stop 07/18/17 at 20 :14 Sodium Chloride 1,000 ml @ 125 mls/hr Q8H IV Last administered on 07/18/17 03:44; Start 07/18/17 at 04:00; Stop 07/18/17 at 04:01; Status DC Acetaminophen (Tylenol) 650 mg PRN Q4HRS PRN PO FEVER Last administered on 22:06; Start 07/17/17 at 20:15; Stop 07/18/17 at 20:14 Alprazolam (Xanax) 1 mg TID PO Last administered on 07/18/17 08:43; Start at 09:00 Aspirin (Children'S Aspirin) 81 mg HS PO ; Start 07/18/17 at 21:00 Acetaminophen/ Hydrocodone Bitart (Lortab 7.5/325) 1 tab for pain 5-7 2 tabs ... PRN Q4HRS PRN PO pain Last administered on 07/18/17 03:43; Start at 00:45 Sertraline HCl (Zoloft) 150 mg HS PO ; Start 07/18/17 at 21:00 Nicotine (Nicoderm Cq 14mg) 1 patch DAILY TD Last administered on 07/18/17 08 :43; Start 07/18/17 at 09:00 Alprazolam (Xanax) 1 mg 1X ONCE PO Last administered on 07/18/17 00:50; Start 07/18/17 at 00:45; Stop 07/18/17 at 00:46; Status DC Sertraline HCl (Zoloft) 150 mg 1X ONCE PO Last administered on 07/18/17 00: 50; Start 07/18/17 at 00:45; Stop 07/18/17 at 00:46; Status DC Regadenoson (Lexiscan) 0.4 mg 1X ONCE IV ; Start 07/18/17 at 12:00; Stop at 12:01; Status DC Non-Formulary Medication 100 mg HS PO ; Start 07/18/17 at 21:00; Status UNV Oxcarbazepine (Trileptal) 100 mg HS PO ; Start 07/18/17 at 21:00; Status UNV Lorazepam (Ativan) 4 mg 1X ONCE IV ; Start 07/18/17 at 12:30; Stop 07/18/17 at 12:31; Status UNV Active Scripts Active Reported [Oxtellar] 100 Mg PO HS Hydrocodone-Apap 7.5-325 (Hydrocodone Bit/Acetaminophen) 1 Each Tablet 1-2 Tab PO Q4-6HRS Zoloft (Sertraline Hcl) 100 Mg Tablet 1.5 Tab PO HS Xanax (Alprazolam) 1 Mg Tablet 1 Tab PO TID Aspirin 81 Mg Tab.chew 1 Tab PO HS Vitals/I & O Vital Sign - Last 24 Hours 07/17/17 07/17/17 07/17/17 07/17/17 18:25 19:01 19:31 20:01 Temp 98.2 98.2 Pulse 84 80 71 69 Resp 22 22 19 B/P (MAP) 157/82 (107) 148/82 (104) 131/81 (98) 139/80 (99) Pulse Ox 95 96 96 97 O2 Delivery Room Air Room Air Room Air Room Air 07/17/17 07/17/17 07/17/17 07/17/17 20:31 21:01 22:07 23:00 Temp 98.1 98.1 Pulse 70 72 62 Resp 22 14 18 16 B/P (MAP) 127/77 (94) 145/91 (109) 147/83 (104) Pulse Ox 96 96 97 O2 Delivery Room Air Room Air Room Air Room Air 07/18/17 07/18/17 07/18/17 07/18/17 00:28 00:52 03:00 03:43 Temp 98.2 98.2 Pulse 68 Resp 18 18 19 18 B/P (MAP) 125/71 (89) Pulse Ox 98 O2 Delivery Room Air Room Air Room Air Room Air 07/18/17 07/18/17 07/18/17 07:00 08:00 11:00 Temp 97.8 97.8 97.8 97.8 Pulse 60 61 Resp 18 18 B/P (MAP) 133/77 (95) 114/76 (89) Pulse Ox 96 95 O2 Delivery Room Air Room Air Room Air Intake and Output 07/17/17 07/17/17 07/18/17 15:00 23:00 07:00 Intake Total 150 ml Balance 150 ml COLLETTE GARZA MD Jul 18, 2017 12:32
[2017-07-18 15:55] VITALS: BP 135/71
--- NOTE | 2017-07-18 16:01 | RAD ---
APPROVED REPORT Test Type: Pharmacological Stress Nurse/Tech: Blanca Sibley R.N. Test Indications: chest pain Cardiac History: carotid artery blockage, asthma, smoker Medications: see ehr Medical History: see ehr Resting ECG: SR Resting Heart Rate: 63 bpm Resting Blood Pressure: 146/79mmHg Pretest Chest Pain: No chest pain Nurse/Tech Notes lungs cta, heart tones regular Consent: The procedure was explained to the patient in lay terms. Informed consent was witnessed. Ahmet eout was entered into [employer]. History and Stress Test performed by Desire Mohr, OSCAR, ARRT (R) (N) Pharm. Details Pharmacologic stress testing was performed using 0.4mg per 5ml of regadenoson given intravenously ove r 7-10 seconds. Stress Symptoms pt c/o chest heaviness throughout recovery POST EXERCISE Reason for Termination: Infusion complete Target HR: No Max HR: 95 bpm Max Blood Pressure: 156/77mmHg Chest Pain: Yes. see above Arrhythmia: No. ST Change: No. INTERPRETATION Stress EKG Conclusion: No evidence of stress induced EKG changes. Imaging Protocol IMAGE PROTOCOL: Rest Tc-99m/stress Tc-99m 1 day Rest: Stress: Viability: Radiopharm.Tc99m [id number] Sestamibi Dose9.1mCi 33mCi Duration 15min. 10min. Img Date 07/18/2017 07/18/2017 Inj-Img [id number]. 60min. STRESS DATA End Diast. Vol.71.0mlAv. Heart Rate61.0bpm End Syst. Vol.9.0mlCO Index BSA3.7L/min Myocardial Qdla232.0gEject. Oulpamyc30.0% Stress Rates Pk. Fill Rate2.78EDV/secLVtime Pk. Fill 115.89msec Pk. Empty Rate3.08ESV/secLVtime Pk. Lpiuz479.48msec 08/21 Pk. Fill1.99EDV/sec Stress Scores Regional WT0.00Summed WT0.00 Regional WM0.00Summed WM0.00 The rest and stress images show normal perfusion, normal contraction and thickening. LV Perf. Quant 17 Seg. SSS0.00 17 Seg. SRS0.00 17 Seg. SDS0.00 Stress Defect Extent (% LAD)0.00Rest Defect Extent (% LAD)0.00Rev. Defect Extent (% LAD)0.00 Stress Defect Extent (% LCX) 0.00Rest Defect Extent (% LCX)0.00Rev. Defect Extent (% LCX)0.00 Stress Defect Extent (% RCA)0.00Rest Defect Extent (% RCA)0.00Rev. Defect Extent (% RCA)0.00 Stress Defect Extent (% ANN)0.00Rest Defect Extent (% ANN)0.00Rev. Defect Extent (% ANN)0.00 Other Information Quality:Good Risk Assessment: Low Risk Conclusion 1. No evidence of EKG changes with stress testing. 2. Normal perfusion at stress/rest. 3. Low risk study. 4. EF > 60%.
[2017-07-18 19:00] VITALS: BP 119/74
[2017-07-18] MEDS: OXcarbazepine 300 MG TABLET PO SCH (20:30)
[2017-07-18] MEDS: HYDROcodone/APAP 7.5/325MG 1 TAB TABLET PO PRN (20:35)
[2017-07-18] MEDS ORDERED: OXcarbazepine 300 MG TABLET PO SCH (21:00)
[2017-07-18] MEDS ORDERED: SERTRALINE 50 MG TABLET. PO SCH (21:00)
[2017-07-18] MEDS ORDERED: OXTELLAR PO SCH (21:00)
[2017-07-18] MEDS ORDERED: ASPIRIN CHEWABLE 81 MG TABLET. PO SCH (21:00)
[2017-07-18 23:00] VITALS: BP 116/76
[2017-07-19 03:00] VITALS: BP 111/66
[2017-07-19 07:00] VITALS: BP 133/75
[2017-07-19] MEDS: OXcarbazepine 300 MG TABLET PO SCH (08:04)
[2017-07-19] MEDS: HYDROcodone/APAP 7.5/325MG 1 TAB TABLET PO PRN (08:04)
[2017-07-19] MEDS: ALPRAZolam 1 MG TABLET PO SCH (08:04)
[2017-07-19] MEDS: NICOTINE 14MG PATCH. TD SCH (08:05)
== END 2017-07-19 10:10 | disposition home or self-care (01) | DRG 313 ==
LOC: ER 18:23 → 5 SOUTH 19:47
PROVIDERS: ADMIT Internal Medicine Hematology & Oncology; ATTEND Internal Medicine Hematology & Oncology
DX: R07.89 Other chest pain (principal); E78.5 Hyperlipidemia, unspecified; F41.9 Anxiety disorder, unspecified; G40.909 Epilepsy, unspecified, not intractable, without status epilepticus; F12.90 Cannabis use, unspecified, uncomplicated; M79.7 Fibromyalgia; F43.10 Post-traumatic stress disorder, unspecified; F17.210 Nicotine dependence, cigarettes, uncomplicated; J45.909 Unspecified asthma, uncomplicated; F32.9 Major depressive disorder, single episode, unspecified; K21.9 Gastro-esophageal reflux disease without esophagitis; I12.9 Hypertensive chronic kidney disease with stage 1 through stage 4 chronic kidney disease, or unspecified chronic kidney disease; N18.9 Chronic kidney disease, unspecified; G89.29 Other chronic pain; Z82.49 Family history of ischemic heart disease and other diseases of the circulatory system; Z88.5 Allergy status to narcotic agent; Z88.8 Allergy status to other drugs, medicaments and biological substances; Z91.041 Radiographic dye allergy status; Z90.710 Acquired absence of both cervix and uterus; Z90.10 Acquired absence of unspecified breast and nipple
CPT/HCPCS: 36415; 71010; 78452; 80048; 80053; 80061; 81001; 82553; 83735; 83880; 84443; 84484; 85025; 93005; 93017; 96360; 96374; 96375; 96376; A9500; J2060; J2785; J3010; J7030; 99285-25

== ENCOUNTER → 2020-12-29 | Outpatient (CLI) | payer MEDICAID ==
[~2020-12-29] MED LIST changes: -HYDR-2762 PO; +HYDR-2765 PO; +OXTELLAR PO; +REGADENOSON 0.4 MG/5 ML DISP.SYRIN. IV ONE
--- NOTE | 2020-12-29 11:11 | CARD ---
MR#: [id number] Date of Study: 12/29/2020 Ordering Physician: EMILIANO PETERSON, Referring Physician: EMILIANO PETERSON, Tech: Venessa Metzger RDCS APPROVED REPORT EXAM: Two-dimensional and M-mode echocardiogram with Doppler and color Doppler. Other Information Quality : Good INDICATION Chest Pain 2D DIMENSIONS RVDd2.2 (2.9-3.5cm)Left Atrium(2D)3.0 (1.6-4.0cm) IVSd0.8 (0.7-1.1cm)Aortic Root(2D)3.2 (2.0-3.7cm) LVDd4.2 (3.9-5.9cm)LVOT Diameter2.0 (1.8-2.4cm) PWd0.7 (0.7-1.1cm)LVDs1.8 (2.5-4.0cm) FS (%) 30.0 %SV69.0 ml LVEF(%)60.0 (>50%) Aortic Valve AoV Peak Chad.116.1cm/sAoV VTI27.6cm AO Peak GR.5.4mmHgLVOT Peak Chad.106.6cm/s LVOT VTI 26.50cmAO Mean GR.3mmHg CHANDA (VMAX)2.21nx5SWY (VTI)3.00cm2 Mitral Valve MV E Tnawrwwx56.3cm/sMV DECEL [id number] MV A Wamqvoop74.0cm/sMV ZFV23ze E/A Ratio1.5MVA (PHT)3.87cm2 TDI E/Lateral E'8.8E/Medial E'11.8 Tricuspid Valve TR P. Ahhasfwe098bv/sRAP DJDYAPUC3azPx TR Peak Gr.66bgVbVVKB03mcTk Pulmonary Vein S1 Nzelmfwp91.8cm/sD2 Ftytaser25.9cm/s LEFT VENTRICLE The left ventricle is normal size. There is normal left ventricular wall thickness. The left ventricu lar systolic function is normal and the ejection fraction is within normal range. The Ejection Fracti on is 55-60%. There is normal LV segmental wall motion. Transmitral Doppler flow pattern is Grade I-a bnormal relaxation pattern. RIGHT VENTRICLE The right ventricle is normal size. The right ventricular systolic function is normal. ATRIA The left atrium size is normal. The right atrium size is normal. The interatrial septum is intact wit h no evidence for an atrial septal defect or patent foramen ovale as noted on 2-D or Doppler imaging. AORTIC VALVE The aortic valve is calcified but opens well. Doppler and Color Flow revealed no significant aortic r egurgitation. There is no significant aortic valvular stenosis. MITRAL VALVE The mitral valve is normal in structure and function. There is no evidence of mitral valve prolapse. There is no mitral valve stenosis. Doppler and Color-flow revealed mild mitral regurgitation. TRICUSPID VALVE The tricuspid valve is normal in structure and function. Doppler and Color Flow revealed trace tricus pid regurgitation. The PA pressure was estimated at 27 mmHg. There is no tricuspid valve stenosis. PULMONIC VALVE The pulmonic valve is not well visualized. Doppler and Color Flow revealed no pulmonic valvular regur gitation. There is no pulmonic valvular stenosis. GREAT VESSELS The aortic root is not well visualized. The ascending aorta is not well seen. The IVC is normal in si ze and collapses >50% with inspiration. PERICARDIAL EFFUSION There is no evidence of significant pericardial effusion. Critical Notification Critical Value: No <Conclusion> The left ventricular systolic function is normal and the ejection fraction is within normal range. Th e Ejection Fraction is 55-60%. There is normal LV segmental wall motion. Signed by : Lincoln Leung, Electronically Approved : 12/29/2020 11:11:15
--- NOTE | 2020-12-29 12:58 | RAD ---
MR#: [id number] Date of Study: 12/29/2020 Ordering Physician: EMILIANO PETERSON Referring Physician: OZ FLORES Tech: RT Ruthy Balderrama) (N) APPROVED REPORT Test Type: Pharmacological Stress Nurse/Tech: Burton العلي RN Test Indications: chest pain Cardiac History: asthma, smoker Medications: See Electronic Medical Record Medical History: See Electronic Medical Record Resting ECG: SR Resting Heart Rate: 52 bpm Resting Blood Pressure: 130/66mmHg Pretest Chest Pain: None Nurse/Tech Notes Lungs CTA, S1S2 Consent: The procedure was explained to the patient in lay terms. Informed consent was witnessed. Ahmet eout was entered into [employer]. History and Stress Test performed by RT Ruthy Balderrama) (N) Pharm. Details Pharmacologic stress testing was performed using 0.4mg per 5ml of regadenoson given intravenously ove r 7-10 seconds. Stress Symptoms No chest pain or symptoms. POST EXERCISE Reason for Termination: Infusion complete Max HR: 77 bpm Max Blood Pressure: 144/66mmHg Blood Pressure response to exercise: Normal blood pressure response during stress. Heart Rate response to exercise: normal response Chest Pain: No. Arrhythmia: No. ST Change: No. INTERPRETATION Stress EKG Conclusion: No evidence of stress induced EKG changes. Imaging Protocol IMAGE PROTOCOL: Rest Tc-99m/stress Tc-99m 1 day Rest: Stress: Viability: Radiopharm.Tc99m DczbrddmfYn27k Sestamibi Erge60hNo 31mCi Duration 13min. 13min. Img Date 12/29/2020 12/29/2020 Inj-Img [id number]. 60min. Rest Admin Site:IV - Right AntecubitalAdministrator:RT Ruthy Balderrama)(N) Stress Admin Site: IV - Right AntecubitalAdministrator: RT Ruthy Balderrama)(N) STRESS DATA End Diast. Vol.80.0mlLVEDV index BSA46.0ml End Syst. Vol.16.0mlLVESV index BSA9.0ml Myocardial Iyaq496.0gEject. Oywwtqln22.0% Stress Scores Regional WT0.00Summed WT0.00 Regional WM0.00Summed WM0.00 The rest and stress images show normal perfusion, normal contraction and thickening. LV Perf. Quant 17 Seg. SSS0.00 17 Seg. SRS0.00 17 Seg. SDS0.00 Stress Defect Extent (% LAD)0.00Rest Defect Extent (% LAD)0.00Rev. Defect Extent (% LAD)0.00 Stress Defect Extent (% LCX) 0.00Rest Defect Extent (% LCX)0.00Rev. Defect Extent (% LCX)0.00 Stress Defect Extent (% RCA)0.00Rest Defect Extent (% RCA)0.00Rev. Defect Extent (% RCA)0.00 Stress Defect Extent (% ANN)0.00Rest Defect Extent (% ANN)0.00Rev. Defect Extent (% ANN)0.00 Other Information Quality:Good Risk Assessment: Low Risk Conclusion 1. No evidence of EKG changes with stress testing. 2. Normal perfusion at stress/rest. 3. Low risk study. 4. EF > 60%. Signed by : Lincoln Leung, Electronically Approved : 12/29/2020 12:57:26
== END ==
LOC: ECHO 08:28
PROVIDERS: ATTEND Internal Medicine Cardiovascular Disease
DX: I34.0 Nonrheumatic mitral (valve) insufficiency (principal); J45.909 Unspecified asthma, uncomplicated; Z87.891 Personal history of nicotine dependence
CPT/HCPCS: 78452; 93017; 93306; A9500; J2785